=== PATIENT | female | born 1960 | race Caucasian/White ===

== ENCOUNTER → 2016-07-22 | Outpatient (CLI) | payer BC ==
[~2016-07-22] MED LIST: BUPR-79 PO; BUPRTAB51 PO; CHOL1TAB46 PO; FLV1 PO; LISI-725 PO; MULT-506 PO; VITAMIN B12 PO; WARF2TAB PO
[2016-07-22 16:56] LABS: PROTHROMBIN TIME (PATIENT) 44.8 SECONDS (9.0-12.0)
== END | disposition home or self-care (01) ==
LOC: C.LAB1850 15:19
PROVIDERS: ATTEND Internal Medicine
DX: D68.51 Activated protein C resistance (principal)

== ENCOUNTER → 2017-05-26 | Outpatient (CLI) | payer BC | END | disposition home or self-care (01) | LOC: C.PAPS 16:56 | PROVIDERS: ATTEND Obstetrics & Gynecology | DX: Z01.419 Encounter for gynecological examination (general) (routine) without abnormal findings (principal) ==

== ENCOUNTER 2024-06-25 16:18 | Observation (INO) ==
[2024-06-25] MEDS: OPTIRAY 320 125ml IV ONE (16:41)
--- NOTE | 2024-06-25 16:45 | Emergency Department Note ---
Impression & Plan Stroke-like episode ADMIT ED Provider Note HPI: History obtained from patient and her brother at the bedside. The patient is a 63-year-old female with history of factor V Leiden, currently on Xarelto, history of anxiety and depression, presents the emergency department with a chief complaint of shortness of breath as well as numbness on her face, hands, and legs bilaterally. Patient states the symptoms began about an hour and a half prior to arrival to the ER. She was helping her brother put together a recliner chair in the living room when she began to feel very short of breath, patient states then she felt some numbness in her hands and feet, her brother drove her by private vehicle to our facility for further evaluation. Brother notes on initial history that the patient is prone to these "episodes" and she has had similar episodes in the past but usually they are not this severe. On arrival here to the ED the patient is alert, she is hemodynamically stable, she states she does have some numbness/tingling in the hands and feet bilaterally and also states that her right lower extremity feels weak. Patient is otherwise hemodynamically stable on arrival. ROS: - Per HPI Differential Diagnosis: Acute ischemic stroke, panic attack, nonspecific paresthesias, MS, intracranial hemorrhage, amongst other potential pathologies. *Outpatient medications and allergy history reviewed. PE: General: Alert HEENT: Normocephalic, trachea midline Eyes: Extraocular eye movement is intact, no scleral erythema Pulmonary: Clear to auscultation bilaterally, no wheezing Cardio: Regular rate and rhythm GI: Abdomen is soft to palpation : No suprapubic tenderness MSK: No evidence of trauma or malformation of the extremities, no edema Skin: No evidence of rash Neuro: Alert, anxious appearing, no ataxia on [id number] testing bilaterally, symmetrical facial movements are appreciated, there is some mild drift of the right lower extremity with testing against gravity, otherwise no focal deficits Psychiatric: Cooperative 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: (As interpreted by myself): - An order was placed for continuous cardiac monitoring - Patient was noted to be in sinus rhythm with a rate of 75 EKG: (As interpreted by myself): Rate: 78 Rhythm: Normal sinus rhythm Intervals: Within normal limits ST changes: No ST elevation Time: 1645 Interventions provided in ED: -Normal saline bolus NIH STROKE SCALE: 1A: Level of consciousness Alert; keenly responsive 0 1B: Ask month and age Both questions right 0 1C: 'Blink eyes' & 'squeeze hands' Performs both tasks 0 2: Horizontal extraocular movements Normal 0 3: Visual allison No visual loss 0 4: Facial palsy Normal symmetry 0 5A: Left arm motor drift No drift for 10 seconds 0 5B: Right arm motor drift No drift for 10 seconds 0 6A: Left leg motor drift Drift, hits bed +2 7: Limb Ataxia No ataxia 0 8: Sensation Normal; no sensory loss 0 9: Language/aphasia Normal; no aphasia 0 10: Dysarthria Normal 0 11: Extinction/inattention No abnormality 0 TOTAL NIH SCORE = 2 Medical Decision Making: IV was established and lab work obtained, patient was placed on sql dba. Lab work shows no leukocytosis, hemoglobin is 10.2, platelet count is normal, CMP does not show any evidence of any critical findings. Troponin is negative. EKG per my interpretation shows normal sinus rhythm without any acute ischemic changes. CT imaging of the head as well as CT angiography of the head neck were obtained and there is no evidence of any large vessel occlusion or intracranial hemorrhage. This was discussed by myself with the interpreting radiologist over the phone. Stroke neurology at [facility] was contacted, I did discuss the patient's presentation with the stroke neurologist, Dr. Tamayo, at this time he recommends no lysis given that the patient is on anticoagulation and is in agreement to that the patient should be admitted to the hospital for secondary workup and likely an MRI given her right lower extremity weakness on presentation. On my reassessment the patient symptoms are improved, she does not have any drift of the right lower extremity, I discussed the patient's presentation with the on-call resident for the hospitalist service for [facility] and the patient was admitted to the service of Dr. Duenas. Consultants/Discussions held with other healthcare providers: -Stroke Neurology, Dr. Tamayo -Hospitalist, Dr. Duenas Disposition discussion held by myself with: -Patient and patient's brother at the bedside Diagnosis: 1. Strokelike episode, acute 2. Right lower extremity weakness, acute 3. Bilateral nonspecific paresthesias of the extremities, acute Disposition: Admission Brian Leonard DO Emergency Medicine Past Med/Surg History Problem List (Updated 06/25/24 @ 18:18 by Brian Leonard DO) Stroke-like episode (Acute) Tendinitis of left rotator cuff Rotator cuff tear, right Health care maintenance Inguinal hernia Genital herpes simplex (Acute) Vitamin D deficiency disease (Acute) Genital herpes simplex USP current use of anticoagulant Previously Coumadin replaced with Xarelto- due to Cavernous sinus thrombosis Vitamin D deficiency Thrombophilia B12 deficiency Depression with anxiety Osteoarthritis Multiple thyroid nodules Multiple thyroid nodules evaluated by machine sprayer in [place]- post biopsy/reported benign Hypertension Hyperlipidemia Folic acid deficiency Factor 5 Leiden mutation, heterozygous Celiac disease Allergic rhinitis GERD (gastroesophageal reflux disease) Medical History (Updated 06/25/24 @ 18:18 by Brian Leonard DO) Sciatica Previous evaluation Dr. Osborne/[facility] Sports Medicine/Wellbutrin/gabapentin used (no longer taking medications) Vertigo chronic, stable per pt Cavernous sinus thrombosis Dr. Nacho HINTON- Yearly follow-up per [place] PCP records-patient states is no longer following with [facility] as was discharged; on xarelto Right rotator cuff tear On anticoagulant therapy xarelto daily Viral disease hx of genital herpes simplex-yrs ago Sciatica hx of issues--followed with Dr. Osborne @ [facility] Spinal stenosis Osteoarthritis GERD (gastroesophageal reflux disease) controlled, stable per pt Celiac disease Thyroid nodule Multiple thyroid nodules evaluated by machine sprayer in [place]- post biopsy/reported benign--follows with machine sprayer in [place] 2x a year Restless leg syndrome Depression Anxiety Migraine Factor 5 Leiden mutation, heterozygous on Xarelto Deep vein thrombosis 2008--per pt 1 in left lower leg and 1 in brain--per pt how she found out she had factor 5 and placed on xarelto--per pt no further blood clots since starting xarelto Hyperlipidemia Hypertension elevated, states has ongoing management with PCP-appt 04/02 Surgical History S/P thyroid biopsy x2--benign Nausea and vomiting after administration of anesthetic agent denies needing scop patch History of dilatation and curettage ablation History of esophagogastroduodenoscopy (EGD) History of colonoscopy History of bilateral tubal ligation History of tooth extraction History of adenoidectomy History of tonsillectomy History of myringotomy Family History Mother Lymphoma of bone marrow with unknown EBV status Diabetes Family history of diabetes mellitus Factor V Leiden mutation Cancer Aunt Cervical cancer Father Coronary heart disease Myocardial infarction Emphysema lung Brother Factor V Leiden mutation Family/Other Heart disease Hypertension Other No family history of adverse response to anesthesia Denies family history of Ovarian cancer Prostate cancer Breast cancer Colorectal cancer Social History Smoking Status: Never smoker Tobacco Type: Cigarettes Age Started Using Tobacco: 13; Age Quit Using Tobacco: 15; packs per day: 1; Second Hand Exposure: No; Do You Dip or Chew Tobacco: No; Hx Alcohol Use: No Hx Substance Use: No Preferred Language: Vincentian Communication Ability: Effective Visual Impairment: No Limitations Hearing Ability: Normal Competitive Intelligence Analyst Required: No Beliefs That Will Affect Care: None marital status: marital status details: once Current Living Situation: Family Current Living Situation Comment: son lives with pt current occupational status: employed 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 Verified 05/11/24 14:27 Diff in patient lactose Allergy Mild Gastrointestinal Verified 05/11/24 14:27 Upset amoxicillin [From Augmentin] Allergy Unknown unknown, Verified 05/11/24 14:27 pt can not remember clavulanic acid Allergy Unknown unknown, Verified 05/11/24 14:27 [From Augmentin] pt can not remember Home Meds Home Medications Medication Instructions Recorded Confirmed cholecalciferol (vitamin D3) 125 5,000 unit PO UD 08/25/18 06/25/24 mcg (5,000 unit) tablet (Vitamin D3) rivaroxaban 10 mg tablet (Xarelto) 10 mg PO HS 08/25/18 06/25/24 lisinopril 40 mg tablet 40 mg PO QAM 03/15/24 06/25/24 meclizine 12.5 mg tablet 12.5 mg PO UD PRN Vertigo 03/19/24 06/25/24 paroxetine HCl 20 mg tablet (Paxil) 20 mg PO QAM 05/11/24 06/25/24 Previous Rx's Medication Instructions Recorded omeprazole 20 mg capsule,delayed 20 mg PO DAILY #30 caps 03/24/24 release hydrochlorothiazide 25 mg tablet 25 mg PO DAILY #90 tabs 04/20/24 Results & Data (ED) Vital Signs Vital Signs - 24 hr 06/25/24 16:19 06/25/24 16:51 06/25/24 16:54 Temperature 36.5 C Temperature Source Temporal Artery Scan Pulse Rate 90 69 Pulse Rate [Apical] 71 Pulse Rhythm [Apical] Regular Pulse Strength [Apical] Normal Respiratory Rate 26 H 18 Respiratory Effort / Characteristics Non-Labored Spontaneous Labored Non-Labored Spontaneous Respiratory Depth Normal Normal Respiratory Pattern Regular Blood Pressure 158/89 H Blood Pressure [Right Arm] 123/80 Blood Pressure Mean 112 Blood Pressure Mean [Right Arm] 94 Pulse Oximetry 97 100 Oxygen Delivery Method Room Air Room Air Sepsis Recent Fever Within 48 Hours No Sepsis New/Unexplained Change in Mental Status N/A Sepsis Action Taken by Nursing No Action Required 06/25/24 17:32 Temperature Temperature Source Pulse Rate Pulse Rate [Apical] 57 L Pulse Rhythm [Apical] Regular Pulse Strength [Apical] Normal Respiratory Rate 19 Respiratory Effort / Characteristics Non-Labored Spontaneous Respiratory Depth Normal Respiratory Pattern Regular Blood Pressure Blood Pressure [Right Arm] 172/102 H Blood Pressure Mean Blood Pressure Mean [Right Arm] 125 Pulse Oximetry 95 Oxygen Delivery Method Room Air Sepsis Recent Fever Within 48 Hours Sepsis New/Unexplained Change in Mental Status Sepsis Action Taken by Nursing Laboratory Data 06/25/24 16:41 06/25/24 16:41 Lab Results 06/25/24 06/25/24 Range/Units 16:41 16:49 WBC 5.63 (4.8-10.8) K/ul RBC 3.54 L (4.20-5.40) M/uL Hgb 10.2 L (12.0-16.0) g/dl Hct 30.5 L (37.0-47.0) % MCV 86.2 (80.0-100.0) fL MCH 28.8 (25.0-34.0) pg MCHC 33.4 (32.0-36.0) g/dL RDW Std Deviation 42.6 (36.4-46.3) fL RDW Coeff of Sreekanth 13.5 (11.5-14.5) % Plt Count 286 (130-400) K/uL MPV 10.6 (9.4-12.4) fL Immature Gran % (Auto) 0.4 % Neut % (Auto) 49.5 % Lymph % (Auto) 40.7 % [place] % (Auto) 7.3 % Eos % (Auto) 1.6 % Baso % (Auto) 0.5 % Neut # (Auto) 2.79 (1.40-6.50) K/uL Lymph # (Auto) 2.29 (1.20-3.40) K/uL [place] # (Auto) 0.41 (0.11-0.59) K/uL Eos # (Auto) 0.09 (0.00-0.50) K/uL Baso # (Auto) 0.03 (0.00-0.20) K/uL Immature Gran # (Auto) 0.02 (0.01-0.20) K/uL PT 10.8 (9.0-12.0) Seconds INR 1.0 (0.9-1.1) APTT 25 (21-31) Seconds PTT Ratio 0.9 Sodium 133 L (136-145) mmol/L Potassium 3.4 L (3.5-5.1) mmol/L Chloride 102 (98-107) mmol/L Carbon Dioxide 23 (21-32) mmol/L Anion Gap 8 (3-11) BUN 24 H (6-23) mg/dl Creatinine 0.90 (0.6-1.2) mg/dl Est Cr Clr Drug Dosing 62.1 ml/min eGFR 71.39 BUN/Creatinine Ratio 26.7 H (10-20) Glucose 143 H (70-99(Fasting)) mg/dl POC Glucose 138 H (70-99) mg/dl Calcium 9.1 (8.6-10.3) mg/dl Magnesium 1.9 (1.7-2.4) mg/dl Total Bilirubin 0.4 (0.2-1.0) mg/dl AST 17 (13-39) U/L ALT 17 (7-52) U/L Alkaline Phosphatase 60 (34-104) U/L Troponin I High Sens 3.7 (0-14) pg/ml Total Protein 5.6 L (6.0-8.3) gm/dl Albumin 3.8 (3.4-5.0) gm/dl Globulin 1.8 L (2.5-4.0) gm/dl Albumin/Globulin Ratio 2.1 H (0.9-2) Administered Medications Discontinued Medications Ioversol (Optiray 320 125ml) 119 ml IV ONCE ONE Stop: 06/25/24 16:41 Last Admin: 06/25/24 16:41 Dose: 119 ml Documented By: [facility] Imaging Data Radiologist's Impression: Head CT 06/25/24 16:27 CT head without contrast History: Numbness and tingling Comparison: None Technique: Using multidetector thin collimation helical acquisition technique, axial, coronal and sagittal CT images from the skull base to the vertex were obtained without intravenous contrast. Dose reduction techniques were achieved by using automatic exposure control and/or adjustment of mA and/or kV according to patient size and/or use of iterative reconstruction technique. Findings: No intracranial hemorrhage, mass-effect, or midline shift. The ventricles are proportionate to the cerebral sulci. The al to white matter differentiation of the cerebral hemispheres is preserved. The basal cisterns are patent. The visualized paranasal sinuses are clear. Mastoid air cells are clear. Impression: No acute intracranial pathology. Electronically signed by Osmany Be 06-25-2024 4:43 PM Head CTA 06/25/24 16:[address] without contrast CT angiogram of the neck CT angiogram of the brain with contrast Provided History: Neuro deficit Comparison: None Technique: HEAD CT: Using multidetector thin collimation helical acquisition technique, axial, coronal and sagittal CT images from the skull base to the vertex were obtained without intravenous contrast. HEAD and NECK CTA: During rapid bolus intravenous injection of nonionic contrast material, axial images were obtained using thin collimation multidetector helical technique from the base of the neck through the Vertex of vertex of the head. This CT angiogram data was reconstructed at thin intervals with mild overlap. 3D reconstructions were obtained. The axial source images, multiplanar reformations, 3D reconstructions in both maximum intensity projection display and volume rendered models were reviewed. Dose reduction techniques were achieved by using automatic exposure control and/or adjustment of mA and/or kV according to patient size and/or use of iterative reconstruction technique. Findings: Head CT: There is no intracranial hemorrhage, mass effect, or midline shift. Al/white matter differentiation in both cerebral hemispheres is preserved. Ventricles are proportionate to the cerebral sulci. Head CTA demonstrates no aneurysm or stenosis of the major intracranial arteries. Neck CTA demonstrates no stenosis of the major cervical arteries. The origins of the great vessels from the aortic arch are patent. The normal distal right internal carotid artery measures 5 mm. The normal distal left internal carotid artery measures 5 mm. No mass is noted within the visualized portions of the cervical soft tissues or lung apices. Impression: 1. Head CTA demonstrates no aneurysm or stenosis of the major intracranial arteries, 2. Neck CTA demonstrates no stenosis of the major cervical arteries. 3. No intracranial hemorrhage on the noncontrast head CT. The study was analyzed using artificial intelligence software for large vessel occlusion detection. Findings discussed with Dr. Leonard by Dr. Be at 4:50 PM, 06/25/2024 Electronically signed by Osmany Be 06-25-2024 4:52 PM Neck CTA 06/25/24 16:[address] without contrast CT angiogram of the neck CT angiogram of the brain with contrast Provided History: Neuro deficit Comparison: None Technique: HEAD CT: Using multidetector thin collimation helical acquisition technique, axial, coronal and sagittal CT images from the skull base to the vertex were obtained without intravenous contrast. HEAD and NECK CTA: During rapid bolus intravenous injection of nonionic contrast material, axial images were obtained using thin collimation multidetector helical technique from the base of the neck through the Vertex of vertex of the head. This CT angiogram data was reconstructed at thin intervals with mild overlap. 3D reconstructions were obtained. The axial source images, multiplanar reformations, 3D reconstructions in both maximum intensity projection display and volume rendered models were reviewed. Dose reduction techniques were achieved by using automatic exposure control and/or adjustment of mA and/or kV according to patient size and/or use of iterative reconstruction technique. Findings: Head CT: There is no intracranial hemorrhage, mass effect, or midline shift. Al/white matter differentiation in both cerebral hemispheres is preserved. Ventricles are proportionate to the cerebral sulci. Head CTA demonstrates no aneurysm or stenosis of the major intracranial arteries. Neck CTA demonstrates no stenosis of the major cervical arteries. The origins of the great vessels from the aortic arch are patent. The normal distal right internal carotid artery measures 5 mm. The normal distal left internal carotid artery measures 5 mm. No mass is noted within the visualized portions of the cervical soft tissues or lung apices. Impression: 1. Head CTA demonstrates no aneurysm or stenosis of the major intracranial arteries, 2. Neck CTA demonstrates no stenosis of the major cervical arteries. 3. No intracranial hemorrhage on the noncontrast head CT. The study was analyzed using artificial intelligence software for large vessel occlusion detection. Findings discussed with Dr. Leonard by Dr. Be at 4:50 PM, 06/25/2024 Electronically signed by Osmany Be 06-25-2024 4:52 PM Discharge Plan Visit Data Chief Complaint: Neuro Symptoms/Deficit Stated Complaint: HEART ISSUES,TROUBLE BREATHING ED Provider: Brian Leonard Discharge Problem: Stroke-like episode Forms Stand Alone Forms: [facility] [employer] Prescriptions Prescriptions: No Action hydrochlorothiazide 25 mg tablet 25 mg PO DAILY Qty: 90 1RF omeprazole 20 mg capsule,delayed release(DR/EC) 20 mg PO DAILY Qty: 30 2RF cholecalciferol (vitamin D3) [Vitamin D3] 5,000 unit Tablet 5,000 unit PO UD Rx Instructions: 5000 unit po qam. otc unable to verify Xarelto 10 mg Tablet 10 mg PO HS lisinopril 40 mg tablet 40 mg PO QAM meclizine 12.5 mg Tablet 12.5 mg PO UD PRN (Reason: Vertigo) Rx Instructions: 12.5 mg po bid prn. otc unable to verify paroxetine HCl [Paxil] 20 mg tablet 20 mg PO QAM Referrals Referrals: Rosie Servin MD [Primary Care Provider] -
[2024-06-25 17:06] LABS: Basophils # (auto) 0.03 K/uL (0.00-0.20); Basophils % (auto) 0.5 %; Eosinophils # (auto) 0.09 K/uL (0.00-0.50); Eosinophils % (auto) 1.6 %; Hematocrit (blood only) 30.5 % (37.0-47.0); Hemoglobin 10.2 g/dl (12.0-16.0); Immature Granulocytes # (auto) 0.02 K/uL (0.01-0.20); Immature Granulocytes % (auto) 0.4 %; Lymphocytes # (auto) 2.29 K/uL (1.20-3.40); Lymphocytes % (auto) 40.7 %; Mean Corpuscular Hemoglobin 28.8 pg (25.0-34.0); Mean Corpuscular Hgb Conc 33.4 g/dL (32.0-36.0); Mean Corpuscular Volume 86.2 fL (80.0-100.0); Mean Platelet Volume 10.6 fL (9.4-12.4); Monocytes # (auto) 0.41 K/uL (0.11-0.59); Monocytes % (auto) 7.3 %; Neutrophils # (auto) 2.79 K/uL (1.40-6.50); Neutrophils % (auto) 49.5 %; Platelet Count 286 K/uL (130-400); RDW Coefficient of Variation 13.5 % (11.5-14.5); RDW Standard Deviation 42.6 fL (36.4-46.3); Red Blood Count 3.54 M/uL (4.20-5.40); White Blood Count 5.63 K/ul (4.8-10.8)
[2024-06-25 17:13] LABS: Albumin Globulin Ratio 2.1 (0.9-2); Albumin Level 3.8 gm/dl (3.4-5.0); BUN Creatinine Ratio 26.7 (10-20); Bilirubin,Total 0.4 mg/dl (0.2-1.0); Calcium 9.1 mg/dl (8.6-10.3); Creatinine Clr Calc Pharmacy 62.1 ml/min; Globulin 1.8 gm/dl (2.5-4.0); Magnesium 1.9 mg/dl (1.7-2.4); Potassium 3.4 mmol/L (3.5-5.1); Total Protein 5.6 gm/dl (6.0-8.3)
[2024-06-25 17:20] LABS: Troponin I High Sensitivity 3.7 pg/ml (0-14)
[2024-06-25 17:23] LABS: Partial Thromboplastin Ratio 0.9; Partial Thromboplastin Time 25 Seconds (21-31); Prothrombin Time 10.8 Seconds (9.0-12.0)
--- NOTE | 2024-06-25 17:57 | CT Scan Report ---
Head CT without contrast CT angiogram of the neck CT angiogram of the brain with contrast Provided History: Neuro deficit Comparison: None Technique: HEAD CT: Using multidetector thin collimation helical acquisition technique, axial, coronal and sagittal CT images from the skull base to the vertex were obtained without intravenous contrast. HEAD and NECK CTA: During rapid bolus intravenous injection of nonionic contrast material, axial images were obtained using thin collimation multidetector helical technique from the base of the neck through the Vertex of vertex of the head. This CT angiogram data was reconstructed at thin intervals with mild overlap. 3D reconstructions were obtained. The axial source images, multiplanar reformations, 3D reconstructions in both maximum intensity projection display and volume rendered models were reviewed. Dose reduction techniques were achieved by using automatic exposure control and/or adjustment of mA and/or kV according to patient size and/or use of iterative reconstruction technique. Findings: Head CT: There is no intracranial hemorrhage, mass effect, or midline shift. Al/white matter differentiation in both cerebral hemispheres is preserved. Ventricles are proportionate to the cerebral sulci. Head CTA demonstrates no aneurysm or stenosis of the major intracranial arteries. Neck CTA demonstrates no stenosis of the major cervical arteries. The origins of the great vessels from the aortic arch are patent. The normal distal right internal carotid artery measures 5 mm. The normal distal left internal carotid artery measures 5 mm. No mass is noted within the visualized portions of the cervical soft tissues or lung apices. Impression: 1. Head CTA demonstrates no aneurysm or stenosis of the major intracranial arteries, 2. Neck CTA demonstrates no stenosis of the major cervical arteries. 3. No intracranial hemorrhage on the noncontrast head CT. The study was analyzed using artificial intelligence software for large vessel occlusion detection. Findings discussed with Dr. Leonard by Dr. Be at 4:50 PM, 06/25/2024 Electronically signed by Osmany Be 06-25-2024 4:52 PM
--- NOTE | 2024-06-25 17:58 | CT Scan Report ---
CT head without contrast History: Numbness and tingling Comparison: None Technique: Using multidetector thin collimation helical acquisition technique, axial, coronal and sagittal CT images from the skull base to the vertex were obtained without intravenous contrast. Dose reduction techniques were achieved by using automatic exposure control and/or adjustment of mA and/or kV according to patient size and/or use of iterative reconstruction technique. Findings: No intracranial hemorrhage, mass-effect, or midline shift. The ventricles are proportionate to the cerebral sulci. The kerr to white matter differentiation of the cerebral hemispheres is preserved. The basal cisterns are patent. The visualized paranasal sinuses are clear. Mastoid air cells are clear. Impression: No acute intracranial pathology. Electronically signed by Osmayn Be 06-25-2024 4:43 PM
[2024-06-25] MEDS: SODIUM CHLORIDE 0.9% 1,000 ML IV ONE (18:19)
--- NOTE | 2024-06-25 18:23 | History & Physical Report ---
Date of Service June 25, 2024 Assessment & Plan (1) Stroke-like episode: Plan: - Head CT, CTA Head and Neck without acute pathology - MRI Brain is pending - will check hemoglobin a1c, lipid panel, TSH/free t4 - neurological deficits do not seem to be congregant with stroke distribution. Also question exertional component to symptoms-> further work-up for PE as per below, ?given periorbital and extremity distribution if anxiety could also be contributing factor (2) PATEL (dyspnea on exertion): Plan: - EKG without ischemic changes, troponin negative, negative stress echo 04/2024 - with history of Factor V Leiden with get CTA PE protocol to ruled out clot as cause of symptoms; because already CTA Head/Neck today will order for tomorrow - increased Xarelto to 20mg daily until clot is ruled out (3) Hypertension: Plan: - Lisinopril/HCTZ on hold at present for permissive HTN but if MRI Brain w/out stroke will plan to resume (4) Factor 5 Leiden mutation, heterozygous: Plan: - increased Xarelto to 20mg acutely as per above (5) Anxiety: Plan: - continue paroxetine Plan Diet: Gluten Free Code: Full Dispo: Tele VTE Prophylaxis: Xarelto History of Present Illness Primary Care Provider: Rosie Servin MD 63 year old female with past medical history of Factor 5 Leiden (heterozygous, on chronic anticoagulation), hypertension, dyslipidemia, Celiac disease, spinal stenosis, and anxiety/depression presenting after episodes of dyspnea, paresthesias, LE weakness. Her brothers are present in the room with her. Has been having episodes of dyspnea/paresthesias for over a year. Only occur with exertion, but do not always occur when exerting herself. Lives here and follows with PCP in [place], daughter is an chief analytics officer at a practice in [place] so has specialists in [place]. Follows with endocrinology there; had one of these episodes walking around office- [facility] sPO2 done to 86 at the time. Has seen both cardiology and pulmonology in [place] as part of work-up for these episodes- no answers yet. [facility] 04/2024. EF= 60%,normal wall motion with exercise, nondiagnostic ST depressions in leads II, III, aVF with exercise. Episodes occur a few times per week. Today she had dyspnea, which has since resolved. Denies chest pain. Paresthesias of feet and hands B/L and around mouth. Weakness in right leg. Since being in ED all of her symptoms have resolved. Denies recent illness/medication changes. ED Work-up Significant for: Hbg= 10.2, K= 3.4. Stroke alert was called in the ED. Head CT, CTA Head/Neck without acute pathology. CXR without acute abnormality., trop= 3.7. s/p 1L NSS Allergies Allergy/AdvReac Type Severity Reaction Status Date / Time gluten Allergy Severe celiac's Verified 05/11/24 14:27 disease wheat Allergy Severe celiac's Verified 05/11/24 14:27 disease cephalexin Allergy Mild RASH Verified 05/11/24 14:27 Cephalosporins Allergy Mild caused C. Verified 05/11/24 14:27 Diff in patient lactose Allergy Mild Gastrointestinal Verified 05/11/24 14:27 Upset amoxicillin [From Augmentin] Allergy Unknown unknown, Verified 05/11/24 14:27 pt can not remember clavulanic acid Allergy Unknown unknown, Verified 05/11/24 14:27 [From Augmentin] pt can not remember Home Medications Medication Instructions Recorded Confirmed Type cholecalciferol (vitamin D3) 125 5,000 unit PO UD 08/25/18 06/25/24 History mcg (5,000 unit) tablet (Vitamin D3) rivaroxaban 10 mg tablet (Xarelto) 10 mg PO HS 08/25/18 06/25/24 History lisinopril 40 mg tablet 40 mg PO QAM 03/15/24 06/25/24 History meclizine 12.5 mg tablet 12.5 mg PO UD PRN Vertigo 03/19/24 06/25/24 History omeprazole 20 mg capsule,delayed 20 mg PO DAILY #30 caps 03/24/24 06/25/24 Rx release hydrochlorothiazide 25 mg tablet 25 mg PO DAILY #90 tabs 04/20/24 06/25/24 Rx paroxetine HCl 20 mg tablet (Paxil) 20 mg PO QAM 05/11/24 06/25/24 History Past Med/Surg History Problem List (Updated 06/25/24 @ 19:04 by Katie Perez DO) PATEL (dyspnea on exertion) Stroke-like episode (Acute) Tendinitis of left rotator cuff Rotator cuff tear, right Health care maintenance Inguinal hernia Genital herpes simplex (Acute) Vitamin D deficiency disease (Acute) Genital herpes simplex skilled nursing current use of anticoagulant Previously Coumadin replaced with Xarelto- due to Cavernous sinus thrombosis Vitamin D deficiency Thrombophilia B12 deficiency Depression with anxiety Osteoarthritis Multiple thyroid nodules Multiple thyroid nodules evaluated by wage and hour investigator in [place]- post biopsy/reported benign Hypertension Hyperlipidemia Folic acid deficiency Factor 5 Leiden mutation, heterozygous Celiac disease Allergic rhinitis GERD (gastroesophageal reflux disease) Medical History (Updated 06/25/24 @ 19:04 by Katie Perez, ) Sciatica Previous evaluation Dr. Osborne/[facility] Medicine/Wellbutrin /gabapentin used (no longer taking medications) Vertigo chronic, stable per pt Cavernous sinus thrombosis Dr. Nacho HINTON- [facility]-patient states is no longer following with [facility] as was discharged; on xarelto Right rotator cuff tear On anticoagulant therapy xarelto daily Viral disease hx of genital herpes simplex-yrs ago Sciatica hx of issues--followed with Dr. Osborne @ [facility] Spinal stenosis Osteoarthritis GERD (gastroesophageal reflux disease) controlled, stable per pt Celiac disease Thyroid nodule Multiple thyroid nodules evaluated by wage and hour investigator in [place]- post biopsy/reported benign--follows with wage and hour investigator in 2x a year Restless leg syndrome Depression Anxiety Migraine Factor 5 Leiden mutation, heterozygous on Xarelto Deep vein thrombosis 2008--per pt 1 in left lower leg and 1 in brain--per pt how she found out she had factor 5 and placed on xarelto--per pt no further blood clots since starting xarelto Hyperlipidemia Hypertension elevated, states has ongoing management with PCP-appt 04/02 Surgical History S/P thyroid biopsy x2--benign Nausea and vomiting after administration of anesthetic agent denies needing scop patch History of dilatation and curettage ablation History of esophagogastroduodenoscopy (EGD) History of colonoscopy History of bilateral tubal ligation History of tooth extraction History of adenoidectomy History of tonsillectomy History of myringotomy Family History Mother Lymphoma of bone marrow with unknown EBV status Diabetes Family history of diabetes mellitus Factor V Leiden mutation Cancer Aunt Cervical cancer Father Coronary heart disease Myocardial infarction Emphysema lung Brother Factor V Leiden mutation Family/Other Heart disease Hypertension Other No family history of adverse response to anesthesia Denies family history of Ovarian cancer Prostate cancer Breast cancer Colorectal cancer Social History Smoking Status: Never smoker Tobacco Type: Cigarettes Age Started Using Tobacco: 13; Age Quit Using Tobacco: 15; packs per day: 1; Second Hand Exposure: No; Do You Dip or Chew Tobacco: No; Hx Alcohol Use: No Hx Substance Use: No Preferred Language: Japanese Communication Ability: Effective Visual Impairment: No Limitations Hearing Ability: Normal Business Control Manager Required: No Beliefs That Will Affect Care: None marital status: marital status details: once Current Living Situation: Family Current Living Situation Comment: son lives with pt current occupational status: employed 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 Feels Safe at Home: Yes Childhood Exposure to Second-Hand Smoke: Yes Diet: gluten free Dental Care, Regularly: Yes Physical Activity Frequency: 3-4 Times per Week Seatbelt Use: always Sunscreen Use: Yes Assistive Devices: Glasses Review of Systems Review of Systems: As per above Physical Exam Physical Exam: Constitutional: well-appearing, no acute distress HEENT: NCAT, no conjunctival injection, PERRLA, EOMI CV: regular rhythm, no murmur appreciated, extremities well-perfused, no LE edema Resp: CTABL, no wheezes/rales/rhonchi appreciated, no increased work of breathing GI: soft, nondistended, nontender, BS normoactive MSK: no gross deformities appreciated Skin: warm, dry, no rash appreciated Neuro: alert, oriented, no focal neurologic deficit appreciated. CN II-XII in tact. Strength 5/5 UE and LE B/L. Results & Data Results & Data Vital Signs (Past 12 Hours) Vital Signs Temp Pulse Pulse Resp BP BP Pulse Ox 06/25/24 17:32 57 L 19 172/102 H 95 06/25/24 16:54 71 18 123/80 100 06/25/24 16:51 69 06/25/24 16:19 36.5 C 90 26 H 158/89 H 97 O2 Del Method 06/25/24 17:32 Room Air 06/25/24 16:54 Room Air 06/25/24 16:51 06/25/24 16:19 Room Air Supervising Physician Co-Signing Physician Notes I personally examined the patient and verified all vidal points of history and exam, discussed case, and agree with decision making with Dr Perez Exertional symptomsgets dyspnea, and then gets a very funny feeling in her head, feels weak and legs feel weak. This seems to resolve with restseems to come on with any moderate or worse exertion. Has been going on for about a year. Has had a stress echo that was normal, otherwise a lot of the rest of the workup was just getting started. Came in today because she had a really bad episode along with some perioral and hand/feet paresthesias. Vitals noted, in general she is awake and alert pleasant no distress. HEENT normocephalic atraumatic mucous membranes moist. Breathing unlabored no accessory muscle use good effort. Skin without rashes pallor or icterus. CTs, chest x-ray, EKG, labs noted. Mild prerenal state with BUN to creatinine ratio. Exertional symptomsShort of breath/lightheadedwhile the exact etiology of the symptoms are little bit difficult to discern, the exertional component, combined with a recent negative stress echo making it unlikely to be an anginal equivalent, combined with the fact that it seems like there is a lightheadedness to it makes me wonder about some sort of diminished preload/diminished venous return/pulmonary hypertension issue. Stroke neurologist is recommended MRI brainwill follow through with this, although I think her paresthesias were probably more due to the anxiety and lightheadedness and may be hyperventilation from feeling so lousy from the eventand seems to be predominantly symmetrical. As far as determining cause: Echo with bubble studylooking for any shunt or any evidence of right right-sided heart failure or pulmonary hypertension (and will want to look into [facility]UNTER history), chest CT with IV contrast to evaluate for any sort of acute/chronic VTE (she is known to have hypercoagulable state, and it is possible she could be failing Xarelto. While she does not look to have overt venous stasis, she is a postmenopausal female and on a diureticI suppose it is possible that simple dehydration/venous stasis and poor venous return could also be a culpritbut I would look at this as more a diagnosis of exclusion as far as ruling out the above differentialsand then possibly holding her diuretic and giving her a fluid challenge followed by exertion. Otherwise as above. Resident Activity Tracking Resident Involvement: Resident Care Provided Care Provided: Adult Hospital Medicine
[2024-06-25] MEDS ORDERED: PHARMACIST DISCHARGE MED REC CONSULT PRN (18:51)
--- NOTE | 2024-06-25 19:03 | XRay Report ---
EXAM: Radiograph of the Chest 1 View INDICATION: Shortness of breath. TECHNIQUE: Frontal view of the chest. COMPARISON: 03/19/2024 FINDINGS: Lungs and pleural spaces: No consolidation or pulmonary edema. No pleural effusion or pneumothorax. Heart: Shape and configuration within normal limits allowing for technique. Mediastinum: Normal contour. Bones/joints: No fracture, erosion or dislocation. Soft tissues: No abnormality noted. No radiopaque foreign body noted. Upper abdomen: No abnormality noted. IMPRESSION: No abnormality noted. ACT 112: Negative or not required by law. Electronically signed by Huyen Sanford 06-25-2024 7:03 PM
--- NOTE | 2024-06-25 19:46 | Billing Data ---
Date of Service June 25, 2024 Coding Level of Care Code 77835 SUB INP/OBS CARE MIN
[2024-06-25] MEDS: LORazepam 2 MG/1 ML VIAL IV STA (20:03)
[2024-06-25] MEDS: GADOBUTROL 65ML VIAL IV ONE (20:26)
[2024-06-25] MEDS: ACETAMINOPHEN 500 MG TAB PO PRN (21:22)
[2024-06-25] MEDS: RIVAROXABAN 20 MG TAB PO SCH (22:21)
--- NOTE | 2024-06-26 00:15 | Magnetic Resonance Report ---
Exam(s): MRI HEAD W/WO Contrast IV Amt: 8.3cc gadavist EXAM: MR Head Without and With Intravenous Contrast CLINICAL HISTORY: Reason for exam: R/u stroke. TECHNIQUE: Magnetic resonance images of the head/brain without and with intravenous contrast in multiple planes. CONTRAST: Patient received 8.3cc Gadavist of IV contrast COMPARISON: CT head from June 25, 2024 FINDINGS: Brain: Trace amounts of periventricular white matter T2 hyperintensity consistent with early chronic small vessel disease. No areas of diffusion restriction are seen to indicate acute stroke. No hemorrhage. No areas of abnormal contrast enhancement. Ventricles: Unremarkable. No ventriculomegaly. Bones/joints: Unremarkable. No acute fracture. Sinuses: Unremarkable as visualized. No acute sinusitis. Mastoid air cells: Unremarkable as visualized. No mastoid effusion. Orbits: Unremarkable as visualized. IMPRESSION: Trace amounts of periventricular white matter T2 hyperintensity consistent with early chronic small vessel disease. No areas of diffusion restriction are seen to indicate acute stroke. Electronically signed by: Emmanuel Elizabeth MD 06/26/24 00:14 AM
[2024-06-26 06:40] LABS: Basophils # (auto) 0.02 K/uL (0.00-0.20); Basophils % (auto) 0.4 %; Eosinophils # (auto) 0.09 K/uL (0.00-0.50); Eosinophils % (auto) 1.9 %; Hematocrit (blood only) 31.9 % (37.0-47.0); Hemoglobin 10.5 g/dl (12.0-16.0); Immature Granulocytes # (auto) 0.01 K/uL (0.01-0.20); Immature Granulocytes % (auto) 0.2 %; Lymphocytes # (auto) 1.53 K/uL (1.20-3.40); Lymphocytes % (auto) 31.5 %; Mean Corpuscular Hgb Conc 32.9 g/dL (32.0-36.0); Mean Corpuscular Volume 88.1 fL (80.0-100.0); Monocytes # (auto) 0.42 K/uL (0.11-0.59); Monocytes % (auto) 8.7 %; Neutrophils # (auto) 2.78 K/uL (1.40-6.50); Neutrophils % (auto) 57.3 %; Platelet Count 249 K/uL (130-400); RDW Coefficient of Variation 13.7 % (11.5-14.5); RDW Standard Deviation 43.9 fL (36.4-46.3); Red Blood Count 3.62 M/uL (4.20-5.40); White Blood Count 4.85 K/ul (4.8-10.8)
[2024-06-26 07:09] LABS: BUN Creatinine Ratio 21.3 (10-20); Calcium 8.8 mg/dl (8.6-10.3); Chol HDL Ratio 3.7 (0-5); Creatinine Clr Calc Pharmacy 70.3 ml/min; Potassium 3.6 mmol/L (3.5-5.1)
[2024-06-26 07:24] LABS: Thyroid Stimulating Hormone 2.245 uIu/ml (0.300-4.500)
--- NOTE | 2024-06-26 07:33 | Electrocardiogram Report ---
Test Reason : Blood Pressure : */* mmHG Vent. Rate : 78 BPM Atrial Rate : 78 BPM P-R Int : 154 ms QRS Dur : 78 ms QT Int : 416 ms P-R-T Axes : 62 -11 57 degrees QTcB Int : 474 ms Normal sinus rhythm Possible Left atrial enlargement Nonspecific ST and T wave abnormality Abnormal ECG When compared with ECG of 19-Mar-2024 12:12, No significant change was found Confirmed by Osmany Hanley ([id number]) on 06/26/2024 7:33:30 AM Referred By: REFERRED SELF Confirmed By: Osmany Hanley
[2024-06-26] MEDS: PARoxetine HCL 20 MG TAB PO SCH (08:15)
[2024-06-26] MEDS: PANTOprazole 40 MG TAB PO SCH (08:15)
[2024-06-26] MEDS: CHOLECALCIFEROL 125 MCG (5,000 UNITS) TAB PO SCH (08:15)
--- NOTE | 2024-06-26 08:59 | XCELERA ---
[id number]
[2024-06-26 10:21] LABS: Estimated Average Glucose 123 mg/dl; Hemoglobin A1C 5.9 % (4.5-5.6)
[2024-06-26] MEDS: OPTIRAY 320 125ml IV ONE (11:14)
--- NOTE | 2024-06-26 11:20 | Hospitalist Progress Note ---
Date of Service June 26, 2024 Assessment & Plan (1) Stroke-like episode: Plan: - Head CT, CTA Head and Neck without acute pathology - MRI Brain is pending - will check hemoglobin a1c, lipid panel, TSH/free t4 - neurological deficits do not seem to be congregant with stroke distribution. Also question exertional component to symptoms-> further work-up for PE as per below, ?given periorbital and extremity distribution if anxiety could also be contributing factor (2) PATEL (dyspnea on exertion): Plan: - EKG without ischemic changes, troponin negative, negative stress echo 04/2024 - with history of Factor V Leiden with get CTA PE protocol to ruled out clot as cause of symptoms; because already CTA Head/Neck today will order for tomorrow - increased Xarelto to 20mg daily until clot is ruled out (3) Hypertension: Plan: - Lisinopril/HCTZ on hold at present for permissive HTN but if MRI Brain w/out stroke will plan to resume (4) Factor 5 Leiden mutation, heterozygous: Plan: - increased Xarelto to 20mg acutely as per above (5) Anxiety: Plan: - continue paroxetine Plan Diet: Gluten Free Code: Full Dispo: Tele VTE Prophylaxis: Xarelto Admission and Anticipated Discharge Date Admission Date: June 25, 2024 Results & Data Results & Data Vital Signs (Past 12 Hours) Vital Signs Temp Pulse Pulse Resp BP Pulse Ox O2 Del Method 06/26/24 07:49 Room Air 06/26/24 07:48 36.8 C 54 L 16 127/70 96 Room Air 06/26/24 07:07 64 06/26/24 03:55 36.3 C L 64 18 97/58 L 96 Room Air
--- NOTE | 2024-06-26 11:31 | CT Scan Report ---
EXAM: CT Angiography Chest With Intravenous Contrast INDICATION: Shortness of breath. TECHNIQUE: Axial computed tomographic angiography images of the chest with intravenous contrast. Sagittal and coronal reformatted images were created and reviewed. This CT exam was performed using one or more of the following dose reduction techniques: automated exposure control, adjustment of the mA and/or kV according to patient size, and/or use of iterative reconstruction technique. MIP reconstructed images were created and reviewed. CONTRAST: 112ml of Optiray 320 was administered intravenously. COMPARISON: No relevant prior studies available. FINDINGS: Pulmonary arteries: No abnormality noted. No pulmonary embolism. Aorta: There is mild atherosclerotic calcification in the aortic arch. No aneurysm or dissection. Lungs and pleural spaces: No abnormality noted. No mass. No consolidation. No significant effusion. No pneumothorax. Heart: Mild global cardiomegaly. No evidence of right heart failure. No pericardial effusion. Bones/joints: No acute or atypical chronic changes. Soft tissues: No abnormality noted. Lymph nodes: No abnormality noted. No enlarged lymph nodes. Kidneys and ureters: Partially imaged at least 3 mm left kidney stone. No hydronephrosis noted. Other findings: Small focus of thickening of the right minor fissure sagittal reconstruction image 48. No further assessment considered necessary. IMPRESSION: 1. No pulmonary embolus or aortic abnormality. 2. No acute pulmonary infiltrate or pleural effusion. ACT 112: Negative or not required by law. Electronically signed by Huyen Sanford 06-26-2024 11:31 AM
[2024-06-26 11:43] VITALS: RESP 18
[2024-06-26 15:38] VITALS: BP 131/78; TEMP 97.7; O2SAT 98
--- NOTE | 2024-06-26 15:45 | Discharge Summary ---
Date of Service June 26, 2024 Admission HPI Per Admitting Provider 63 year old female with past medical history of Factor 5 Leiden (heterozygous, on chronic anticoagulation), hypertension, dyslipidemia, Celiac disease, spinal stenosis, and anxiety/depression presenting after episodes of dyspnea, paresthesias, LE weakness. Her brothers are present in the room with her. Has been having episodes of dyspnea/paresthesias for over a year. Only occur with exertion, but do not always occur when exerting herself. Lives here and follows with PCP in [place], daughter is an escrow officer at a practice in [place] so has specialists in [place]. Follows with endocrinology there; had one of these episodes walking around office- [facility] sPO2 done to 86 at the time. Has seen both cardiology and pulmonology in [place] as part of work-up for these episodes- no answers yet. Was also seen by [place] cardiology and had a stress echo 04/2024. EF= 60%,normal wall motion with exercise, nondiagnostic ST depressions in leads II, III, aVF with exercise. Episodes occur a few times per week. Today she had dyspnea, which has since resolved. Denies chest pain. Paresthesias of feet and hands B/L and around mouth. Weakness in right leg. Since being in ED all of her symptoms have resolved. Denies recent illness/medication changes. ED Work-up Significant for: Hbg= 10.2, K= 3.4. Stroke alert was called in the ED. Head CT, CTA Head/Neck without acute pathology. CXR without acute abnormality., trop= 3.7. s/p 1L NSS Admission Exam Per Admitting Provider Constitutional: well-appearing, no acute distress HEENT: NCAT, no conjunctival injection, PERRLA, EOMI CV: regular rhythm, no murmur appreciated, extremities well-perfused, no LE edema Resp: CTABL, no wheezes/rales/rhonchi appreciated, no increased work of braxton thing GI: soft, nondistended, nontender, BS normoactive MSK: no gross deformities appreciated Skin: warm, dry, no rash appreciated Neuro: alert, oriented, no focal neurologic deficit appreciated. CN II-XII intact. Strength 5/5 UE and LE B/L. Principal Diagnosis Dyspnea on exertion Discharge Exam General: patient resting comfortably, NAD, non-toxic in appearance, answers questions appropriately. Skin: warm, dry, intact HEENT: NC/AT, anicteric sclera, conjunctiva without injection, moist mucus membranes. Heart: +S1/S2, regular, no m/r/g Lungs: equal air entry bilaterally, no rales/rhonchi/wheezes Abd: +BS, soft, NT/ND Ext: warm, no clubbing/cyanosis or edema Neuro: nonfocal, speech intact, no facial droop, moving all extremities. Discharge Data Allergies Allergy/AdvReac Type Severity Reaction Status Date / Time gluten Allergy Severe celiac's Verified 05/11/24 14:27 disease wheat Allergy Severe celiac's Verified 05/11/24 14:27 disease cephalexin Allergy Mild RASH Verified 05/11/24 14:27 Cephalosporins Allergy Mild caused C. Verified 05/11/24 14:27 Diff in patient lactose Allergy Mild Gastrointestinal Verified 05/11/24 14:27 Upset amoxicillin [From Augmentin] Allergy Unknown unknown, Verified 05/11/24 14:27 pt can not remember clavulanic acid Allergy Unknown unknown, Verified 05/11/24 14:27 [From Augmentin] pt can not remember Consultations 06/25/24 17:55 ED Decision to Admit Stat Ordered Studies 06/25/24 16:27 CT angio head w con Stat CT angio neck with con Stat CT head/brain wo con Stat 06/25/24 18:56 MR brain wo/w con Routine 06/26/24 10:13 CT angio chest PE protocol Urgent Hospital Course (1) Stroke-like episode: (2) PATEL (dyspnea on exertion): (3) Hypertension: (4) Factor 5 Leiden mutation, heterozygous: (5) Anxiety: Plan (1) Stroke-like episode: Plan: - Head CT, CTA Head and Neck without acute pathology - MRI Brain is pending - will check hemoglobin a1c, lipid panel, TSH/free t4 - neurological deficits do not seem to be congregant with stroke distribution. Also question exertional component to symptoms-> further work-up for PE as per below, ?given periorbital and extremity distribution if anxiety could also be contributing factor (2) PATEL (dyspnea on exertion): Plan: - EKG without ischemic changes, troponin negative, negative stress echo 04/2024 - with history of Factor V Leiden with get CTA PE protocol to ruled out clot as cause of symptoms; because already CTA Head/Neck today will order for tomorrow - increased Xarelto to 20mg daily until clot is ruled out (3) Hypertension: Plan: - Lisinopril/HCTZ on hold at present for permissive HTN but if MRI Brain w/out stroke will plan to resume (4) Factor 5 Leiden mutation, heterozygous: Plan: - increased Xarelto to 20mg acutely as per above (5) Anxiety: Plan: - continue paroxetine Total Time Total Time Spent Total Time Spent (In Minutes): See attending attestation Discharge Plan Discharge Items Patient Disposition: Home - Self-Care Reason For Visit: TIA Discharge Diagnosis: Dyspnea on exertion Activity: Per Instructions section Non-emergency contact: Primary Care Provider Call non-emergency contact if: your symptoms worsen Follow-up/Referrals: Rosie Servin MD [Primary Care Provider] - 07/05/24 11:20 am Diet: Regular Addtl Attending Provider Instructions: You were admitted to the hospital for episodes of dyspnea on exertion, dizziness, and brain fog. You were treated with fluids and tested extensively for possible stroke. While at the hospital you were tested for cardiac and brain related causes for your episodes that you described as attacks of feeling feint and short of breath. CT and MRI Imaging revealed no abnormalities related to your condition in your neck, head, or brain. It is likely that your unpredictable symptoms could have been caused by dehydration, autonomic dysfunction of your blood vessels, or a symptomatic slow heart rate. It is less likely to be caused by autonomic malfunction of the blood vessels as when you walked up and down multiple flights of stairs with the team your heart rate remained at an appropriate elevated rate and typically you do not have symptoms when you get up quickly or first thing in the morning. In order to work on the dehydration part of the picture it is important that you drink 60-80 oz of water per day, diuretics such as coffee do not count towards this fluid amount. In addition as you recently began a water pill, hydrochlorothiazide, and this is counterintuitive to staying hydrated we will temporarily hold this medication until you see your PCP to discuss a potential different anti-hypertensive medication vs the same medication at a lower dose. While making these changes please keep using your fitbit watch to monitor your heart rates and please let your PCP know if these heart rates start climbing above 150 systolic when you are not excessively exerting yourself. If you notice a change in symptoms or discover a new etiology of your symptoms through the physician team in [place] please call [phone] and ask to speak or leave a message to Dr. Bry Mcdermott or Dr. Lito Triana A discharge summary will be sent to your primary care physician to ensure continuity of care. Please bring this discharge summary with you to your next office appointment so that your provider can review it at that time. Follow-up appointments: Make a follow-up appointment with your PCP within the next week. It is very important that you follow up with them shortly after discharge from the hospital. Medications: Your medication list has been reviewed and reconciled upon discharge to ensure accuracy and continuity of care. An updated list of all your medications is included with your hospital discharge paperwork. Please review this list closely, and make note of any changes. Please hold Hydrochlorothiazide 25mg until your next appointment with your PCP to discuss potential medication change due to its contribution to your dehydration Take your medications as instructed; do not skip a dose of your medicines. Make sure all of your doctors know every medicine you are taking (including [id number] medicines, vitamins, and supplements). Call your primary care provider before taking any new medicines (including [id number] medicines, vitamins, and supplements), because some of these may interact with your current medications, or may make your symptoms worse. Tell your primary care provider if you cannot afford your medications. CONTACT YOUR PRIMARY CARE PROVIDER if you experience any of the following: Difficulty following your treatment plan, or difficulty taking medications CALL 911 OR GO TO THE EMERGENCY DEPARTMENT if you experience any of the following: Sudden, severe abdominal pain or nausea/vomiting Severe chest pain, or chest pain that radiates (moves) to your jaw or arm Sudden, severe shortness of breath or difficulty breathing Thank you for allowing us to participate in your care. Pending Studies at Discharge: No Stand-Alone Forms: [employer], Smoking Cessation Medications and DC Order Prescriptions: New cyanocobalamin (vitamin B-12) 1,000 mcg capsule 1,000 mcg PO DAILY Qty: 30 3RF Continued omeprazole 20 mg capsule,delayed release(DR/EC) 20 mg PO DAILY Qty: 30 2RF cholecalciferol (vitamin D3) [Vitamin D3] 5,000 unit Tablet 5,000 unit PO UD Rx Instructions: 5000 unit po qam. otc unable to verify Xarelto 10 mg Tablet 10 mg PO HS lisinopril 40 mg tablet 40 mg PO QAM meclizine 12.5 mg Tablet 12.5 mg PO UD PRN (Reason: Vertigo) Rx Instructions: 12.5 mg po bid prn. otc unable to verify paroxetine HCl [Paxil] 20 mg tablet 20 mg PO QAM Discontinued hydrochlorothiazide 25 mg tablet 25 mg PO DAILY Qty: 90 1RF Discharge Orders: Discharge Order (Routine); Ordered 06/26/24 Ordered By: Lito Triana Admission Data Admit Date/Time: 06/25/24 18:23 Attending Provider: Bry Mcdermott Admit Provider: Katie Perez Primary Care Provider: Rosie Servin V. Other Providers: Mati Duenas Other Interventions: Discharge Summary Assessment (RN) Last Done: 06/26/24 17:07 Supervising Physician Co-Signing Physician Notes I personally examined the patient and verified all vidal points of history and exam, discussed case, and agree with decision making with Dr Triana feeling better and feeling up to going home. Has not had any episodes since she came to the hospital. Vitals noted, in general she is awake and alert pleasant no distress. HEENT normocephalic atraumatic mucous membranes moist. Breathing unlabored no accessory muscle use good effort. We take a walk in the hallway she walks very briskly with no dyspnea no lightheadedness/etc.and then given that her symptoms really would only come on with more exertion, we walk several flights of steps together and she walks briskly with no untoward dyspnea her heart rate after walking about 2-1/2 flights of steps was 117 and sinus on the monitor, she had no episodeswe walked back to her room she felt fine. Short of breath/lightheaded episodesetiologies such as chronic pulmonary emboli were ruled out with a normal chest CT, her echocardiogram did not show any shunt or any evidence of RV/pulmonary hypertension etiologies (did discuss further with a right heart cath could be more accurate if needed, although it is not clear that this will be necessary). Given that her symptoms seem to be almost orthostatic or vagal as far as what the symptoms seem to feel likebut rather brought on by exertion, rather than changing positions/GI distress/etc.I still wonder if it does not have some sort of decreased preload/reduced venous return type of mechanism. While it would be a bit atypical, I do wonder about simple dehydrationit sounds like she drinks maybe 16 ounces of fluid including coffee, and possibly runs a little bit dry, and in that respect the "why now" of leading to an admission yesterday with symptoms that had been going on for a year could be simply worsening of the symptom complex after initiating her hydrochlorothiazideto that end I asked her to track fluid intake with a goal of 60-80 ounces a day (not counting her coffee towards the goal) and following for recurrence of symptoms/also holding her hydrochlorothiazide; while she does not fit what appear to be criteria for POTS, POTS like physiology was also entertainedprobably less likely given that her heart rate response seemed appropriate to the exercise we had her doat the same time, asked her to wear her Fitbit watch to be able to track her heart rateespecially so that we can see what her heart rate is whenever she has an episode (this will also be effective for screening for the very unlikely event of symptomatic bradycardiawhich I would highly doubt). Given that she is feeling good, feel safe for home, and would like to go homedischarge to home, close outpatient follow-up. Resident Activity Tracking Resident Involvement: Resident Care Provided Care Provided: Adult Hospital Medicine
[2024-06-26 17:08] VITALS: PULSE 63
--- NOTE | 2024-06-26 17:14 | Billing Data ---
Date of Service June 26, 2024 Coding Level of Care Code 15795 IN/OBS DISCH 30 MIN/LESS
== END 2024-06-26 17:51 | disposition home or self-care (01) ==
LOC: 2N 16:18 → ED 16:18 → SUATTDRO 18:23 → 2N 20:36